=== PATIENT | male | born 1985 | race Caucasian/White ===

== ENCOUNTER 2017-05-26 09:06 | Emergency (ER) | payer OTHER ==
[~2017-05-26] VITALS: Ht 180.3 cm; Wt 72.6 kg
--- NOTE | 2017-05-26 09:20 | NUR ---
R FLANK PAIN x 3 DAYS. COUGH x 2 WEEKS. NAD NOTED. PT AAO X4, AMB WITH STEADY GAIT. RR EVEN AND UNLABORED. PENDING MD RABAGO.
[2017-05-26] MEDS ORDERED: ONDANSETRON 4 MG TAB.RAPDIS SL ONE (09:30)
[2017-05-26] MEDS ORDERED: HYDROCODONE BIT/HOMATROPINE 5 ML UDC PO ONE (09:30)
[2017-05-26] MEDS ORDERED: ONDANSETRON 4 MG TAB.RAPDIS ONE (09:37)
[2017-05-26] MEDS ORDERED: HYDROCODONE BIT/HOMATROPINE 5 ML UDC ONE (09:37)
[2017-05-26 10:40] VITALS: BP 122/64
--- NOTE | 2017-05-26 10:41 | NUR ---
Patient discharged to home in stable condition. Written and verbal after care instructions given. Patient verbalizes understanding of instruction. amb with steady gait. no further complaints.
== END 2017-05-26 10:41 | disposition home or self-care (01) ==
LOC: ER 09:08
DX: S23.41XA Sprain of ribs, initial encounter (principal); R05 Cough; X58.XXXA Exposure to other specified factors, initial encounter; Y93.89 Activity, other specified; Y92.89 Other specified places as the place of occurrence of the external cause; Y99.8 Other external cause status
CPT/HCPCS: 71100-TC; A4606; Q0162; Z7610